=== PATIENT | female | born 2000 | race Caucasian/White ===

== ENCOUNTER 2022-01-19 15:46 | Emergency (ER) | payer BC ==
[~2022-01-19] VITALS: Ht 172.7 cm; Wt 114.8 kg
[2022-01-19] MEDS ORDERED: NORETH EE FE PO (19:13)
[2022-01-19] MEDS ORDERED: ADVIL MIGRAINE200 MG PO (19:14)
== END 2022-01-19 21:11 | disposition home or self-care (01) ==
LOC: ED 15:46
DX: B27.90 Infectious mononucleosis, unspecified without complication (principal); Z79.899 Other long term (current) drug therapy
CPT/HCPCS: 36415; 86308; 87880

== ENCOUNTER 2023-05-18 12:42 | Emergency (ER) | payer BC ==
[~2023-05-18] VITALS: Ht 172.7 cm; Wt 124.7 kg
[~2023-05-18 12:42] MED LIST: ADVIL MIGRAINE200 MG PO; NORETH EE FE PO
[2023-05-18] MEDS ORDERED: ondansetron HCL 4 MG/2 ML VIAL IV ONE (16:45)
[2023-05-18] MEDS ORDERED: HYDROmorphone HCL 1 MG/ML SYR IV PRN (17:00)
[2023-05-18] MEDS ORDERED: KETOROLAC TROMETHAMINE 30 MG/ML VIAL IV ONE (17:00)
[2023-05-18 17:25] LABS: BILIRUBIN, URINE NEGATIVE (negative); BLOOD/HGB, URINE TRACE-I (Negative); KETONE, URINE NEGATIVE (Negative); LEUK ESTERASE, URINE TRACE (negative); NITRITE, URINE NEGATIVE (negative)
[2023-05-18 17:33] LABS: EPITHELIAL CELLS, URINE SQUAMOUS 1+ /lpf (0-1+); WHITE BLOOD CELLS, URINE 0-1 /HPF (0-5)
[2023-05-18 17:34] LABS: BACTERIA, URINE RARE /hpf (negative); CASTS, URINE NONE SEEN \\lpf; COLLECTION TYPE, URINE CLEAN CATCH; CRYSTALS, URINE NONE SEEN (0-1+); REFLEX CULTURE, URINE No (No)
[2023-05-18 17:37] LABS: EOSINOPHILS 3.1 % (0-6); HEMATOCRIT 43.7 % (35.0-50.0); HEMOGLOBIN 14.4 g/dL (12.0-18.0); LYMPHOCYTES 39.3 % (24-44); MCHC 32.9 g/dl (30-36); MCV 85.2 fl (81-99); MONOCYTES 9.2 % (0-12); NEUTROPHILS 47.4 % (39-80); PLATELET COUNT 386 K/uL (140-440); RBC 5.12 M/ul (4.3-5.7); RDW 12.9 (10.5-15.0)
[2023-05-18 17:53] LABS: ALBUMIN 3.8 g/dL (3.4-5.0); ALBUMIN/GLOBULIN RATIO 0.93 (1.1-2.4); ANION GAP 14.9 (7-21); BILIRUBIN, TOTAL 0.3 ng/dL (0.2-1.0); BUN/CREATININE RATIO 20.58 (6.0-28.6); CALCIUM 9.4 mg/dL (8.5-10.1); CREATININE, SERUM 0.68 mg/dL (0.55-1.02); POTASSIUM 3.9 mmol/L (3.5-5.1); PROTEIN, TOTAL 7.9 g/dL (6.4-8.2)
[2023-05-18] MEDS ORDERED: HYDROCODON-ACE1 EA11 PO (18:48)
[2023-05-18 19:03] VITALS: BP 114/62
[2023-05-20] MEDS ORDERED: TRAMADOL HCL50 MG PO (14:47)
== END 2023-05-18 19:04 | disposition home or self-care (01) ==
LOC: ED 12:42
PROVIDERS: Emergency Medicine
DX: R10.2 Pelvic and perineal pain (principal); Z87.42 Personal history of other diseases of the female genital tract
CPT/HCPCS: 36415; 76830; 76856; 80053; 81001; 84703; 85025; 96374; 96375; 99284-25; J1170; J1885; J2405